=== PATIENT | male | born 1960 | race African-American/Black ===

== ENCOUNTER 2025-09-16 09:00 | Emergency (ER) | payer OTHER ==
[~2025-09-16] VITALS: Ht 167.6 cm; Wt 102.0 kg
[~2025-09-16 09:00] MED LIST: AMLO10TA80 MT; ASPI-1406 MT; CLOP-31 MT; CYCL10TA21 PO; HYDR25TA MT; LIP40 PO; LOSA50TA41 PO; MELO-106 MT; METO-539 MT
[2025-09-16 09:09] VITALS: TEMP 36.7; O2SAT 100
[2025-09-16 09:56] LABS: BASOPHILS % 0.7 % (0.0-2.0); EOSINOPHILS % 2.6 % (0.0-5.0); HEMATOCRIT. 37.0 % (42.0-52.0); HEMOGLOBIN. 12.2 g/dL (14.0-18.0); LYMPHOCYTES % 35.4 % (20.0-50.0); MEAN PLATELET VOLUME 7.8 fl (7.4-10.4); MONOCYTES % 10.3 % (2.0-8.0); NEUTROPHILS % 51.0 % (40.0-76.0); PLATELET 267 x1000/uL (130-400); RED BLOOD CELL COUNT 4.11 mill/uL (4.7-6.1); RED CELL DISTRIBUTION WIDTH 13.4 % (11.6-14.6)
[2025-09-16 10:13] LABS: INR 1.0
[2025-09-16 10:17] LABS: CREATININE 1.2 mg/dL (0.6-1.3); UREA NITROGEN BLOOD 15 mg/dL (9-23)
[2025-09-16 10:20] LABS: ASPARTATE AMINOTRANSFERASE 26 IU/L (<34); BILIRUBIN DIRECT 0.3 mg/dL (<=3.0); BILIRUBIN TOTAL 1.1 mg/dL (0.1-1.0); PROTEIN TOTAL 7.6 g/dL (6.0-8.3)
[2025-09-16 11:37] LABS: TROPONIN I HIGH SENSITIVITY 29 ng/L (3.0-53)
[2025-09-16] MEDS: MELOXICAM 7.5MG TABLET PO ONE (12:37)
[2025-09-16] MEDS: METHOCARBAMOL 750MG TABLET PO SCH (12:37)
[2025-09-16 13:34] LABS: TROPONIN I HIGH SENSITIVITY 24 ng/L (3.0-53)
[2025-09-16 13:55] VITALS: BP 127/76; PULSE 58; RESP 16; O2SAT 100
[2025-09-16] MEDS ORDERED: METH-653 MT (14:04)
== END 2025-09-16 14:21 | disposition home or self-care (01) ==
LOC: ER 09:18
DX: R07.89 Other chest pain (principal); I10 Essential (primary) hypertension; I25.2 Old myocardial infarction; Z79.899 Other long term (current) drug therapy; Z79.82 Long term (current) use of aspirin; Z79.1 Long term (current) use of non-steroidal anti-inflammatories (NSAID); Z79.02 Long term (current) use of antithrombotics/antiplatelets
CPT/HCPCS: 36415; 71045; 80048; 80076; 83880; 84484; 85025; 93005; 99285